=== PATIENT | male | born 1990 | race Caucasian/White ===

== ENCOUNTER 2018-02-24 07:07 | Emergency (ER) | payer OTHER ==
[2018-02-24] MEDS ORDERED: ONDANSETRON DISINTEGRATING 4 MG TAB PO ONE (07:33)
--- NOTE | 2018-02-24 07:46 | EDPHY ---
H & P Stated Complaint: n/v x 7 since 0200. lightheaded . denies pain. Time Seen by Provider: 02/24/18 07:19 HPI/ROS: CHIEF COMPLAINT: Dizziness, nausea and vomiting History by patient HISTORY OF PRESENT ILLNESS: 27-year-old man with a history of syncope for which he has an implantable loop recorder for the past 3 years but has had no events presents today feeling lightheaded like he is going to pass out which began suddenly at around 2:00 a.m. He has not had true syncope. When he woke because he was nauseated and vomit. He has vomited about 6 times since then. He denies any diarrhea. His last bowel movement was yesterday and was normal. He denies constipation. Denies any abdominal pain. He does have anorexia. He has been taking water but vomiting that right back up. He has no unusual food exposures or ill contacts. He lives with his father who has not had any symptoms and ate the same thing last night. He denies any alcohol use. He denies any marijuana use. He occasionally uses Xanax for anxiety but not every day. He has felt sweaty and cold but has not checked his temperature. He denies any dysuria, urgency frequency or hematuria. He denies any back pain or groin pain. He has a mild headache. He has had a little bit of a runny nose but no cough or sore throat. He has no rash. He has no prior abdominal surgeries. REVIEW OF SYSTEMS: As in HPI, and all other systems reviewed and are negative Source: Patient - Personal History Current Tetanus Diphtheria and Acellular Pertussis (TDAP): Yes - Medical/Surgical History Hx Asthma: No Hx Chronic Respiratory Disease: No Hx Diabetes: No Hx Cardiac Disease: No Hx Renal Disease: No Hx Cirrhosis: No Hx Alcoholism: No Hx HIV/AIDS: No Hx Splenectomy or Spleen Trauma: No Other PMH: heart dysrhythmia has implanted monitor - Social History Smoking Status: Never smoked - Physical Exam Exam: General Appearance: Alert, nontoxic-appearing. Eyes: Pupils equal and round, extraocular movements intact, no pallor or injection. Mouth: Mucous membranes moist. Pharynx clear Respiratory: Normal, effort, lungs are clear to auscultation. No wheezes, rales or rhonchi. Cardiovascular: Regular rate and rhythm. S1, S2, no murmurs, gallops or rubs appreciated Gastrointestinal: bowel sounds present, Abdomen is soft and nondistended and nontender, no masses Back: No CVA tenderness, no bony tenderness Neurological: Awake, alert and oriented x 3, no pronator drift, normal gait, no pronator drift Skin: Warm and dry, no rashes. Musculoskeletal: No deformities or tenderness. Extremities: full range of motion, no edema Psychiatric: Patient has normal affect, there is no agitation. Constitutional: Initial Vital Signs Temperature (C) 36.4 C 02/24/18 07:17 Heart Rate 69 02/24/18 07:17 Respiratory Rate 16 02/24/18 07:17 Blood Pressure 142/91 H 02/24/18 07:17 O2 Sat (%) 95 02/24/18 07:17 O2 Delivery Mode Room Air Allergies/Adverse Reactions: cefaclor [From Ceclor] Allergy (Severe, Verified 02/24/18 07:16) Rash Home Medications: Medication Instructions Recorded Xanax 02/24/18 Medical Decision Making - Diagnostics EKG Interpretation: Normal sinus rhythm at a rate of 74 with sinus arrhythmia normal axis, normal intervals and no evidence of acute ischemia or arrhythmia. And minimal change from prior. ED Course/Re-evaluation: 19-year-old man presents with acute onset nausea and vomiting 6 hr prior to arrival. Here the patient has normal vital signs and unremarkable exam and minimal signs of clinical dehydration. ECG was done which showed no evidence of arrhythmia. He was given oral Zofran with improvement in his nausea afterwards he was able to take fluids and he felt less dizzy. There is no evidence of hemodynamic instability or arrhythmia causing his dizziness. Patient will be discharged home with Zofran and we discussed return precautions including but limited to inability to take fluids or medications, worsening symptoms, true syncope or other new concerns. Patient understands and is agreeable to this plan. - Data Points Medications Given: Discontinued Medications Ondansetron HCl (Zofran Odt) 4 mg PO EDNOW ONE Stop: 02/24/18 07:34 Last Admin: 02/24/18 07:35 Dose: 4 mg Ondansetron HCl (Zofran Odt 4 Mg Prepack#2) 1 btl TAKEHOME EDNOW ONE Stop: 02/24/18 08:58 Last Admin: 02/24/18 09:13 Dose: 1 btl Departure - Departure Disposition: Home, Routine, Self-Care Clinical Impression: Vomiting with nausea, not intractable Qualifiers: Vomiting type: unspecified Qualified Code(s): R11.2 - Nausea with vomiting, unspecified Condition: Good Instructions: Acute Nausea and Vomiting (ED) Additional Instructions: You were seen by Dr. Trupti Warren today. We have not found any serious cause for dehydration today. You have a normal heart rhythm. You may take Zofran every 8 hr as needed for nausea and vomiting. Make sure to drink plenty of fluids and get a little bit of salt and sugar with your water in the form of whatever taste good to to eat or take broth, rehydration drinks like Pedialyte or Gatorade. Return for any worsening or new concerns, including but not limited to inability to keep down fluids or medicine or worsening. Referrals: NONE *PRIMARY CARE P,. [Primary Care Provider] - As per Instructions
[2018-02-24] MEDS ORDERED: ONDANSETRON 4MG PREPACK#2 BTL TAKEHOME ONE (08:57)
[2018-02-24 09:20] VITALS: BP 138/88
== END 2018-02-24 09:19 | disposition home or self-care (01) ==
LOC: CED 07:07
DX: R11.2 Nausea with vomiting, unspecified (principal); R42 Dizziness and giddiness; F41.9 Anxiety disorder, unspecified